=== PATIENT | male | born 1960 | race Caucasian/White ===

== ENCOUNTER → 2017-03-01 | Outpatient (CLI) | payer BC ==
[2017-03-01 10:58] LABS: CHLORIDE,CL 109 mmol/L (98-110); SODIUM,NA 141 mmol/L (136-146)
== END ==
LOC: MW.CHIM 10:22
PROVIDERS: ATTEND Internal Medicine
DX: E11.9 Type 2 diabetes mellitus without complications (principal)
CPT/HCPCS: 36415; 80053; 83036

== ENCOUNTER → 2017-03-08 | Outpatient (CLI) | payer BC | LOC: MW.US 09:18 | PROVIDERS: ATTEND Internal Medicine | DX: R74.8 Abnormal levels of other serum enzymes (principal); Z53.9 Procedure and treatment not carried out, unspecified reason ==

== ENCOUNTER → 2017-03-09 | Outpatient (CLI) | payer BC ==
--- NOTE | 2017-03-10 15:08 | US ---
EXAMINATION: Right upper quadrant ultrasound HISTORY: Abnormal enzymes COMPARISON: None TECHNIQUE: Grayscale and color Doppler images obtained of the right upper quadrant. FINDINGS: The visualized pancreas appears normal. The liver is moderately increased in generalized e chotexture without a focal hepatic mass. The gallbladder wall thickness is normal. No pericholecysti c fluid or shadowing gallstones. Common bile duct measures 5 mm. The right kidney measures 11.2 cm p ole-to-pole without evidence of hydronephrosis. The sonographic Lopez sign is negative. IMPRESSION: Moderate to severe fatty infiltration of the liver.
== END ==
LOC: MW.US 08:14
PROVIDERS: ATTEND Internal Medicine
DX: R74.8 Abnormal levels of other serum enzymes (principal); K76.0 Fatty (change of) liver, not elsewhere classified
CPT/HCPCS: 76705; 76705-26

== ENCOUNTER 2023-06-11 07:18 | Day surgery (SDC) | payer BC ==
[~2023-06-11 07:18] MED LIST: Lactated Ringers 1,000 ML IV SCH
[2023-06-11] MEDS ORDERED: Lidocaine 2% 5 ML SDV ONE (08:49)
[2023-06-11] MEDS ORDERED: Propofol 200 MG/20 ML SDV ONE (08:49)
[2023-06-11] MEDS ORDERED: Lactated Ringers 1,000 ML IV SCH (09:15)
[2023-06-11 09:30] VITALS: PULSE 70
[2023-06-11 10:52] VITALS: BP 113/79
== END 2023-06-11 09:55 | disposition home or self-care (01) ==
LOC: MW.SDS 07:18
PROVIDERS: ATTEND Surgery
DX: Z12.11 Encounter for screening for malignant neoplasm of colon (principal); E11.9 Type 2 diabetes mellitus without complications; I10 Essential (primary) hypertension; Z79.82 Long term (current) use of aspirin; Z79.84 Long term (current) use of oral hypoglycemic drugs; Z79.899 Other long term (current) drug therapy; Z80.0 Family history of malignant neoplasm of digestive organs; Z87.891 Personal history of nicotine dependence; Z78.9 Other specified health status
CPT/HCPCS: 45378; 82947; J2704; J7120; J3490